=== PATIENT | male | born 1985 | race Two or more races ===

== ENCOUNTER 2022-12-17 17:00 | Emergency (ER) | payer MEDICARE, MEDICAID, SELFPAY ==
--- NOTE | ~2022-12-17 | XR_ITS ---
EXAMINATION: X-RAY RIGHT FEMUR X-RAY RIGHT TIBIA/FIBULA CLINICAL INFORMATION: Pain. COMPARISON: None. TECHNIQUE: 2 views of the right femur. 2 views of the right tibia/fibula. FINDINGS: Right femur: No acute fractures or subluxation. The femoral head is well-seated in the acetabula. No unexpected radiopaque foreign bodies. Right tibia/fibula: No acute fractures or malalignment. No unexpected radiopaque foreign bodies. XR/XR tibia fibula RT 2V IMPRESSION: No acute fractures or malalignment.
--- NOTE | ~2022-12-17 | XR_ITS ---
EXAMINATION: X-RAY RIGHT FEMUR X-RAY RIGHT TIBIA/FIBULA CLINICAL INFORMATION: Pain. COMPARISON: None. TECHNIQUE: 2 views of the right femur. 2 views of the right tibia/fibula. FINDINGS: Right femur: No acute fractures or subluxation. The femoral head is well-seated in the acetabula. No unexpected radiopaque foreign bodies. Right tibia/fibula: No acute fractures or malalignment. No unexpected radiopaque foreign bodies. XR/XR femur RT 2V IMPRESSION: No acute fractures or malalignment.
[2022-12-17 17:06] VITALS: BP 142/89; PULSE 93; RESP 20; TEMP 36.6; O2SAT 100; BMI 17.5
--- NOTE | 2022-12-17 17:13 | ED.GENADULT ---
HPI - General Adult General Chief complaint: Fall <Silas Read - Last Filed: 12/17/22 17:15> Stated complaint: Fall <Silas Read - Last Filed: 12/17/22 17:15> Time Seen by Provider: 12/17/22 17:31 <Silas Read - Last Filed: 12/17/22 17:15> Source: patient and other <LAMBERTO Murillo - Last Filed: 12/17/22 18:57> Mode of arrival: ambulatory <LAMBERTO Murillo - Last Filed: 12/17/22 18:57> Limitations: no limitations <LAMBERTO Murillo Last Filed: 12/17/22 18:57> History of Present Illness HPI narrative: 37-year-old male presents to the ER for evaluation of right leg pain after he fell out of a passenger van while at the [facility] today. Patient's foot slipped on the exiting staff and the patient fell onto his right knee and right leg. He reports pain in the right leg with ambulation. He reports pain is in the upper leg, knee, lower leg. He denies any swelling. He is able to bear weight. He reports pain is mostly in the knee with ambulation. He denies any numbness, weakness, tingling. No other injuries. He did not hit his head. <LAMBERTO Murillo - Last Filed: 12/17/22 18:57> MD complaint: Right lower extremity pain status post fall <LAMBERTO Murillo Last Filed: 12/17/22 18:57> Onset (ago): hour(s) <LAMBERTO Murillo - Last Filed: 12/17/22 18:57> Location: right and lower extremity <LAMBERTO Murillo Last Filed: 12/17/22 18:57> Radiation: non-radiation <LAMBERTO Murillo Last Filed: 12/17/22 18:57> Severity: moderate <LAMBERTO Murillo Last Filed: 12/17/22 18:57> Severity scale (1-10): 4 <LAMBERTO Murillo Last Filed: 12/17/22 18:57> Quality: aching <LAMBERTO Murillo - Last Filed: 12/17/22 18:57> Pain Consistency: intermittent <LAMBERTO Murillo - Last Filed: 12/17/22 18:57> Relieving factors: rest <LAMBERTO Mruillo - Last Filed: 12/17/22 18:57> Exacerbating factors: movement <LAMBERTO Murillo - Last Filed: 12/17/22 18:57> Associated symptoms: denies other symptoms <LAMBERTO Murillo - Last Filed: 12/17/22 18:57> Treatments prior to arrival: none <LAMBERTO Murillo - Last Filed: 12/17/22 18:57> Related Data Home medications: Previous Rx's Medication Instructions Recorded ibuprofen 600 mg tablet 600 mg PO TID PRN pain #14 tabs 12/17/22 <Silas Read - Last Filed: 12/17/22 17:15> Allergies/adverse reactions: Allergies Allergy/AdvReac Type Severity Reaction Status Date / Time No Known Allergies Allergy Verified 12/17/22 17:11 <Silas Read - Last Filed: 12/17/22 17:15> Review of Systems Review of Systems: Yes all other systems are reviewed and are negative <LAMBERTO Murillo - Last Filed: 12/17/22 18:57> [facility] Social History Social History: Social History Advance Directives: No Advance Directives Information Provided: No <Silas Read - Last Filed: 12/17/22 17:15> Physical Exam ED Vital Signs: Vital Signs - 24 hr 12/17/22 17:06 Temperature 98 F Pulse Rate 93 Respiratory Rate 20 Blood Pressure 142/89 H Pulse Oximetry 100 Oxygen Delivery Method Room Air BMI result Body Mass Index 17.5 <Silas Read - Last Filed: 12/17/22 17:15> Vital Signs - 24 hr 12/17/22 17:06 Temperature 98 F Pulse Rate 93 Respiratory Rate 20 Blood Pressure 142/89 H Pulse Oximetry 100 Oxygen Delivery Method Room Air BMI result Body Mass Index 17.5 <LAMBERTO Murillo - Last Filed: 12/17/22 18:57> Appearance: Alert. Oriented X3. No acute distress. HEENT: normal inspection CVS: Normal heart rate and rhythm. Pulses normal. Respiratory: No respiratory distress. Skin: Skin warm and dry. Normal skin color. Normal skin turgor. No rashes. Extremities: Normal inspection of bilateral lower extremities. No bruising or swelling of the right lower extremity. Normal range of motion of the right hip, right knee and right ankle. Patient reports pain with full extension and full flexion of the right knee. No palpable effusion or swelling. Neuro: Oriented X 3. No motor deficit. No sensory deficit. <LAMBERTO Murillo - Last Filed: 12/17/22 18:57> Course Course Course Narrative: RME- 37-year-old male presents for evaluation of right leg pain after a fall. He presents for halfway with a caregiver. Apparently he slipped while trying to get into the van about half an hour prior to arrival. He did not hit his head or lose consciousness. He complains of pain to his entire right leg. There are no deformities on exam. The patient is ambulatory without any difficulty. X-rays ordered. Head is normocephalic, atraumatic <Silas Read - Last Filed: 12/17/22 17:15> Reevaluation(s) Reevaluation #1: X-rays reviewed, no evidence of acute fracture dislocation. He is ambulatory. Right knee without any swelling or evidence of trauma. Most likely simple contusion. Will treat accordingly with NSAIDs, rest, ice and supportive care. Diagnosis and management discussed with caregiver. Stable for discharge home. <LAMBERTO Murillo - Last Filed: 12/17/22 18:57> Medical Decision Making Differential Diagnosis Differential Diagnoses: The differential diagnosis associated with the presentation includes <LAMBERTO Murillo Last Filed: 12/17/22 18:57> Knee contusion, knee sprain, ligamentous injury, muscle contusion, doubt any acute fracture of the right hip, femur, tibia or fibula. <LAMBERTO Murillo - Last Filed: 12/17/22 18:57> Independent Interpretation I performed an independent interpretation of an: Plain X-Ray <LAMBERTO Murillo Last Filed: 12/17/22 18:57> Interpretation: X-rays reviewed, no evidence of acute fracture dislocation <LAMBERTO Murillo Last Filed: 12/17/22 18:57> Radiology Impression Discussion of test interpretation with radiology: I have reviewed the radiologist's reading. <LAMBERTO Murillo - Last Filed: 12/17/22 18:57> Radiologist Impression: XR/XR femur RT 2V IMPRESSION: No acute fractures or malalignment. ?XR/XR tibia fibula RT 2V IMPRESSION: No acute fractures or malalignment. ? <LAMBERTO Murillo - Last Filed: 12/17/22 18:57> Independent Historian Clinical information obtained from an independent historian. 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 <LAMBERTO Murillo - Last Filed: 12/17/22 18:57> Critical Care Time Critical Care Time Critical Care Time: No <LAMBERTO Murillo - Last Filed: 12/17/22 18:57> Discharge Plan Discharge Clinical Impression: Contusion of knee, right <Silas Read - Last Filed: 12/17/22 17:15> Patient Disposition: Home, Self-Care <Silas Read - Last Filed: 12/17/22 17:15> Instructions: Knee Pain (ED) <Silas Read - Last Filed: 12/17/22 17:15> Additional Instructions: Your x-rays today were normal. Take the prescribed anti-inflammatory medication as needed for pain Rest and use ice to the areas of pain and discomfort Follow up with your doctor as needed If you develop new or worsening symptoms call 911 or come back to the ER for further evaluation. <Silas Read - Last Filed: 12/17/22 17:15> Prescriptions: New ibuprofen 600 mg tablet 600 mg PO TID PRN (Reason: pain) Qty: 14 0RF <Silas Read - Last Filed: 12/17/22 17:15>
== END 2022-12-17 19:23 | disposition home or self-care (01) ==
PROVIDERS: Emergency Provider Emergency Medicine
DX: S80.01XA Contusion of right knee, initial encounter (principal); M25.561 Pain in right knee; W01.0XXA Fall on same level from slipping, tripping and stumbling without subsequent striking against object, initial encounter; Y93.9 Activity, unspecified; Y92.9 Unspecified place or not applicable; Y99.9 Unspecified external cause status
CPT/HCPCS: 73552; 73590; 99282; 99283